=== PATIENT | male | born 1985 | race Caucasian/White ===

== ENCOUNTER 2018-12-04 21:07 | Emergency (ER) | payer OTHER ==
[2018-12-04 21:18] VITALS: BP 114/60
--- NOTE | 2018-12-04 22:14 | UC ---
Skin Complaint HPI - HPI Summary HPI Summary: 33-year-old male presents with complaints of a wound to his left knee with redness that is spreading. States he was playing softball 2 days ago, slid into a base, and sustained a abrasion to his left knee. Today he started noticing redness that has been spreading from the margins of the wound. Mildly tender to touch. Denies any fever, chills, joint pain, decreased range of motion, or purulent drainage. - History of Current Complaint Chief Complaint: UCLowerExtremity Time Seen by Provider: 12/04/18 22:11 Stated Complaint: LEFT LEG CUT Hx Obtained From: Patient Pain Intensity: 3 - Allergy/Home Medications Allergies/Adverse Reactions: Allergies Allergy/AdvReac Type Severity Reaction Status Date / Time No Known Allergies Allergy Verified 12/04/18 21:18 Home Medications: Home Medications Fexofenadine/Pseudoephedrine [Cielo-D 24 Hour Tablet] 1 tab PO DAILY 12/04/18 [History Confirmed 12/04/18] PMH/Surg Hx/FS Hx/Imm Hx Previously Healthy: Yes - Denies significant PMH - Surgical History Surgical History: Yes Surgery Procedure, Year, and Place: appendectomy - Family History Known Family History: Positive: Non-Contributory - Social History Occupation: Employed Full-time Lives: Alone Alcohol Use: Rare Substance Use Type: None Smoking Status (MU): Never Smoked Tobacco - Immunization History Most Recent Tetanus Shot: 8 years Review of Systems All Other Systems Reviewed And Are Negative: Yes Constitutional: Negative: Fever, Chills Skin: Positive: Other - See HPI Respiratory: Positive: Negative Cardiovascular: Positive: Negative Gastrointestinal: Positive: Negative Genitourinary: Positive: Negative Musculoskeletal: Positive: Negative Neurological: Positive: Negative Is Patient Immunocompromised?: No Physical Exam - Summary Physical Exam Summary: GENERAL APPEARANCE: Well developed, well nourished, alert and cooperative, and appears to be in no acute distress. CARDIAC: Normal S1 and S2. No S3, S4 or murmurs. Rhythm is regular. There is no peripheral edema, cyanosis or pallor. Extremities are warm and well perfused. Capillary refill is less than 2 seconds. Peripheral pulses intact. LUNGS: Clear to auscultation without rales, rhonchi, wheezing or diminished breath sounds. ABDOMEN: Positive bowel sounds. Soft, nondistended, nontender. No guarding or rebound. No masses or hepatosplenomegally. MUSKULOSKELETAL: ROM intact to all extremities. No joint erythema or tenderness. Normal muscular development. Normal gait. SKIN: 5.0 cm x 2.0 cm superficial abrasion with granulation tissue and some slough with erythema that extends out from the wound margins up to 4.0 cm at the greatest point to the left anterior knee. Erythema was marked with a skin pen. Triage Information Reviewed: Yes Vital Signs: Initial Vital Signs Temp 99.3 F 12/04/18 21:14 Pulse 77 12/04/18 21:14 Resp 16 12/04/18 21:14 BP 114/60 12/04/18 21:14 Pulse Ox 98 12/04/18 21:14 Vital Signs Reviewed: Yes Course/Dx - Course Course Of Treatment: 33-year-old male presents with complaints of a wound to his left knee with redness that is spreading. States he was playing softball 2 days ago, slid into a base, and sustained a abrasion to his left knee. Today he started noticing redness that has been spreading from the margins of the wound. Mildly tender to touch. Denies any fever, chills, joint pain, decreased range of motion, or purulent drainage. Afebrile. VSS. Patient had a 5.0 cm x 2.0 cm superficial abrasion with granulation tissue and some slough with erythema that extends out from the wound margins up to 4.0 cm at the greatest point to the left anterior knee. Erythema was marked with a skin pen. Will treat for a cellulitis secondary to the abrasion of the knee. Patient was prescribed cephalexin 500 mg 1 tab QID x 7 days. First dose was given in the clinic. He is to follow up with his PCP in 5-7 days for a wound check. Anticipatory guidance and warning symptoms were reviewed with the patient. Verbalizes understanding and agrees with POC. - Differential Diagnoses - Skin Complaint Differential Diagnoses: Cellulitis - Diagnoses Provider Diagnosis: Abrasion of left knee, Cellulitis of left knee Discharge - Sign-Out/Discharge Documenting (check all that apply): Patient Departure All imaging exams completed and their final reports reviewed: No Studies - Discharge Plan Condition: Stable Disposition: HOME Patient Education Materials: Cellulitis (ED), Abrasion (ED) Referrals: Robert Jin MD [Primary Care Provider] - 5 Days Additional Instructions: You appear to have developed an infection of the skin called cellulitis secondary to the abrasion on your knee. We will start her on an antibiotic to treat the infection. Take cephalexin 500 mg 1 capsule 4 times a day for 7 days. We gave you the first dose in the clinic. Continue to clean the abrasion with a mild soap and water at least once a day. Applied antibiotic ointment and keep the wound covered. Follow-up with your primary care provider in 5-7 days for a recheck of your wound. Seek immediate medical attention if you develop a fever greater than 100.5 F, the redness continues to spread after being on the antibiotics for 2 days, you have pain that is not managed with [id number] pain medication, swelling of the leg, or any worsening of symptoms. - Billing Disposition and Condition Condition: STABLE Disposition: Home
[2018-12-04] MEDS ORDERED: Cephalexin CAP* 500 MG PO ONE (22:23)
== END 2018-12-04 22:45 | disposition home or self-care (01) ==
LOC: UCEAST 21:07
DX: L03.116 Cellulitis of left lower limb (principal); W45.8XXA Other foreign body or object entering through skin, initial encounter; Y92.9 Unspecified place or not applicable
CPT/HCPCS: 99212; A9270-GY; G0463